=== PATIENT | female | born 1985 | race American Indian/Alaskan Native ===

== ENCOUNTER 2017-06-17 15:05 | Emergency (ER) | payer MEDICAID ==
[2017-06-17 15:39] VITALS: BP 111/75; PULSE 62; RESP 16; TEMP 98.2; O2SAT 100
--- NOTE | 2017-06-17 16:23 | C.PDOC ---
History Of Present Illness 31 year old female presents to the ED c/o sore throat on and off for the past 2 weeks. Patient reports throat pain got worse over the past 3 days and now is associated with painful swallowing. Patient also noticed a painful lump in the front of her neck. Patient denies fever, chills, cough, runny nose, vomit, diarrhea, rash. Time Seen by Provider: 06/17/17 15:42 Chief Complaint (Nursing): ENT Problem History Per: Patient History/Exam Limitations: None Onset/Duration Of Symptoms: Days Current Symptoms Are (Timing): Still Present Quality (Mouth/Throat): Swelling Symptoms Have Been: Episodic Anticoagulant/Antiplatlet Use?: No Recent Aspirin Use: No Past Medical History Reviewed: Historical Data, Nursing Documentation, Vital Signs Vital Signs: Last Vital Signs Temp 98.2 F 06/17/17 15:35 Pulse 62 06/17/17 15:35 Resp 16 06/17/17 15:35 BP 111/75 06/17/17 15:35 Pulse Ox 100 06/17/17 16:32 - Medical History PMH: Anemia Surgical History: No Surg Hx Family History: States: Unknown Family Hx - Social History Hx Tobacco Use: Yes Hx Alcohol Use: Yes Hx Substance Use: Yes - Immunization History Hx Tetanus Toxoid Vaccination: No Hx Influenza Vaccination: No Hx Pneumococcal Vaccination: No Review Of Systems Except As Marked, All Systems Reviewed And Found Negative. Constitutional: Negative for: Fever, Chills ENT: Positive for: Throat Pain. Negative for: Nose Discharge, Nose Congestion Cardiovascular: Negative for: Chest Pain Respiratory: Negative for: Cough, Shortness of Breath Gastrointestinal: Negative for: Nausea, Vomiting, Abdominal Pain Skin: Negative for: Rash Neurological: Negative for: Weakness, Numbness Physical Exam - Physical Exam Appears: Non-toxic, No Acute Distress Skin: Normal Color, Warm, Dry, No Rash Head: Atraumatic, Normacephalic Eye(s): bilateral: Normal Inspection Ear(s): Bilateral: Normal Nose: No Discharge Oral Mucosa: Moist Throat: Erythema, No Exudate Neck: Normal ROM, No Midline Cervical Tenderness, Supple Lymphatic: Adenopathy (cervical) Chest: Symmetrical Cardiovascular: Rhythm Regular, No Friction Rub, No Murmur Respiratory: Normal Breath Sounds, No Rales, No Rhonchi, No Wheezing Gastrointestinal/Abdominal: Soft, No Tenderness Back: Normal Inspection, No CVA Tenderness Extremity: Normal ROM, No Tenderness, No Swelling Neurological/Psych: Oriented x3, Normal Motor, Normal Sensation Gait: Steady ED Course And Treatment O2 Sat by Pulse Oximetry: 100 (On RA) Pulse Ox Interpretation: Normal Medical Decision Making Medical Decision Making: Plan: * Motrin 400 mg PO * Prednisone 20 mg PO * Amoxicillin 500 mg PO Patient was offered antibiotics but refused. Patient states she will follow up with her PMD. Disposition - Disposition Referrals: Calvin Perez MD [Staff Provider] - Disposition: HOME/ ROUTINE Disposition Time: 16:19 Condition: GOOD Additional Instructions: Follow up with the medical doctor within 1-2 days without fail. Return if worsened Instructions: Strep Throat (DC) Forms: [facility] (Divehi) - Clinical Impression Clinical Impression: Pharyngitis - PA / STAMP MOUNTER / Resident Statement MD/DO has reviewed & agrees with the documentation as recorded. - Scribe Statement The provider has reviewed the documentation as recorded by the Scribe Saeid Frank All medical record entries made by the Scribe were at my direction and personally dictated by me. I have reviewed the chart and agree that the record accurately reflects my personal performance of the history, physical exam, medical decision making, and the department course for this patient. I have also personally directed, reviewed, and agree with the discharge instructions and disposition.
== END 2017-06-17 16:27 | disposition home or self-care (01) ==
LOC: C.ER 15:05
DX: J02.9 Acute pharyngitis, unspecified (principal)

== ENCOUNTER 2017-11-10 15:20 | Emergency (ER) | payer MEDICAID ==
[2017-11-10 15:46] VITALS: BP 104/67; PULSE 76; RESP 16; TEMP 98.5; O2SAT 99
--- NOTE | 2017-11-10 16:27 | C.PDOC ---
History Of Present Illness 32 y/o female presents to the ED for evaluation s/p mechanical fall. Patient states she fell down some stairs on Tuesday. Now complaining of pain to the left hip/upper leg, left elbow, and right shoulder/rib. No LOC. Patient otherwise denies head injury, chest pain, SOB, abdominal pain, numbness, weakness, or tingling. Time Seen by Provider: 11/10/17 16:07 Chief Complaint (Nursing): Lower Extremity Problem/Injury History Per: Patient History/Exam Limitations: no limitations Onset/Duration Of Symptoms: Days Current Symptoms Are (Timing): Still Present Past Medical History Reviewed: Historical Data, Nursing Documentation, Vital Signs Vital Signs: Last Vital Signs Temp 98.5 F 11/10/17 15:44 Pulse 76 11/10/17 15:44 Resp 16 11/10/17 15:44 BP 104/67 11/10/17 15:44 Pulse Ox 99 11/10/17 18:22 - Medical History PMH: Anemia, Anxiety Denies: Chronic Kidney Disease Family History: States: Unknown Family Hx - Social History Hx Tobacco Use: Yes Hx Alcohol Use: Yes Hx Substance Use: Yes - Immunization History Hx Tetanus Toxoid Vaccination: No Hx Influenza Vaccination: No Hx Pneumococcal Vaccination: No Review Of Systems Except As Marked, All Systems Reviewed And Found Negative. Eyes: Negative for: Vision Change Cardiovascular: Negative for: Chest Pain Respiratory: Negative for: Shortness of Breath Gastrointestinal: Negative for: Vomiting, Abdominal Pain Musculoskeletal: Positive for: Arm Pain (left elbow, right shoulder), Leg Pain ( Left hip and upper leg), Other (Right rib pain) Neurological: Negative for: Weakness, Numbness, Incoordination, Dizziness, Other (head injury/LOC) Physical Exam - Physical Exam Appears: Non-toxic, No Acute Distress Skin: Warm, Dry Head: Atraumatic, Normacephalic, No Swelling (or hematoma) Eye(s): bilateral: Normal Inspection, PERRL, EOMI Oral Mucosa: Moist Neck: Normal ROM Chest: No Deformity, Tenderness (mild tenderness to right ribs), No Ecchymosis Cardiovascular: Rhythm Regular, No Murmur Respiratory: Normal Breath Sounds, No Accessory Muscle Use, No Rhonchi, No Wheezing Gastrointestinal/Abdominal: Soft, No Tenderness, No Distention Extremity: Normal ROM, Tenderness (Large area of ecchymosis, tenderness, and swelling to the left hip and upper leg; (+) tenderness to left elbow and right shoulder), Capillary Refill (less than 2 sec), No Deformity Pulses: Left Radial: Normal, Right Radial: Normal, Left Dorsalis Pedis: Normal, Right Dorsalis Pedis: Normal Neurological/Psych: Oriented x3, Normal Speech, Normal Cranial Nerves, Normal Motor, Normal Sensation Gait: Steady ED Course And Treatment O2 Sat by Pulse Oximetry: 99 (RA) Pulse Ox Interpretation: Normal - Other Rad x-ray left pelvis/hip X-Ray: Viewed By Me, Read By Radiologist Interpretation: FINDINGS: BONES: Pelvic Bones: Unremarkable. Hips: Bilateral superolateral hip joint space narrowing and mild acetabular spurring findings consistent with probable developmental variation early arthritic changes. JOINTS: Sacroiliac Joints: Minimal SI joint sclerotic arthrosis. Pubic Symphysis: Unremarkable. OTHER FINDINGS: None. IMPRESSION: No fracture or dislocation. Other findings as above. x-ray left femur X-Ray: Viewed By Me, Read By Radiologist Interpretation: FINDINGS: No fracture or lytic lesion. IMPRESSION: No fracture or trauma related pathology appreciated x-ray bilateral elbows X-Ray: Viewed By Me, Read By Radiologist Interpretation: FINDINGS: No fracture or dislocation. No elbow joint effusion. IMPRESSION: Negative Medical Decision Making Medical Decision Making: Impression: Pain to left hip/leg, left elbow, right shoulder/ribs s/p Fall Plan: --Tylenol PO --Right ribs/chest x-ray --Right shoulder x-ray --Left elbow x-ray --Left femur x-ray --Left hip w/ pelvis x-ray --Reassessment and disposition Patient is refusing right rib and right shoulder x-rays. Risks and benefits discussed. X-ray findings reviewed with patient. Counseled regarding diagnosis and follow up instructions. Patient is stable for discharge home, provided with rx for naproxen. xr neg for fx. refuses rib and shoulder xr lungs cta. speaking fullsentences. Disposition Counseled Patient/Family Regarding: Studies Performed, Diagnosis, Need For Followup, Rx Given - Disposition Disposition: HOME/ ROUTINE Disposition Time: 17:16 Condition: STABLE Additional Instructions: return to er with worsening symptoms or concerns. Prescriptions: Naproxen [Naprosyn] 500 mg PO BID PRN #14 tablet PRN Reason: Pain, Mild (1-3) Instructions: Contusion (DC), Hip Pain, Elbow Sprain (DC) Forms: [employer] (Austrian) - POA Present On Arrival: Falls Or Trauma - Clinical Impression Clinical Impression: Contusion, hip, Fall, Elbow sprain - Scribe Statement The provider has reviewed the documentation as recorded by the Scribe (Karina Lerner) Provider Attestation: All medical record entries made by the Scribe were at my direction and personally dictated by me. I have reviewed the chart and agree that the record accurately reflects my personal performance of the history, physical exam, medical decision making, and the department course for this patient. I have also personally directed, reviewed, and agree with the discharge instructions and disposition.
--- NOTE | 2017-11-10 17:12 | RAD ---
Date of service: 11/10/2017 PROCEDURE: HISTORY: trauma COMPARISON: None TECHNIQUE: Two views 4 images FINDINGS: No fracture or lytic lesion. IMPRESSION: No fracture or trauma related pathology appreciated
--- NOTE | 2017-11-10 17:13 | RAD ---
Date of service: 11/10/2017 PROCEDURE: Radiographs of the pelvis. HISTORY: trauma COMPARISON: None. FINDINGS: BONES: Pelvic Bones: Unremarkable. Hips: Bilateral superolateral hip joint space narrowing and mild acetabular spurring findings consistent with probable developmental variation early arthritic changes. JOINTS: Sacroiliac Joints: Minimal SI joint sclerotic arthrosis. Pubic Symphysis: Unremarkable. OTHER FINDINGS: None. IMPRESSION: No fracture or dislocation. Other findings as above.
--- NOTE | 2017-11-10 17:14 | RAD ---
Date of service: 11/10/2017 PROCEDURE: HISTORY: trauma COMPARISON: None TECHNIQUE: Three views each side FINDINGS: No fracture or dislocation. No elbow joint effusion. IMPRESSION: Negative
== END 2017-11-10 17:46 | disposition home or self-care (01) ==
LOC: C.ER 15:20
DX: S70.02XA Contusion of left hip, initial encounter (principal); S53.402A Unspecified sprain of left elbow, initial encounter; W10.9XXA Fall (on) (from) unspecified stairs and steps, initial encounter; Z72.0 Tobacco use